=== PATIENT | female | born 1990 | race Caucasian/White ===

== ENCOUNTER 2024-12-25 18:07 | Inpatient (IN) | payer OTHER, SELFPAY ==
[2024-12-25] MEDS: LR 1000 IV (18:15)
[2024-12-25 18:28] VITALS: BMI 30.4
[2024-12-25 18:40] VITALS: BP 138/93
[2024-12-25 18:50] LABS: Hematocrit 35.8 % (37.0-47.0); Hemoglobin 12.0 g/dL (12.0-16.0); Mean Corp Hgb Conc. 33.5 g/dL (33.0-37.0); Mean Corpuscular Volume 83.3 fL (81.0-99.0); Nucleated Red Blood Cells % 0 %; Platelet Count 166 10^3/uL (130-400); Red Cell Dist. Width 13.2 % (11.5-14.5)
[2024-12-25 19:08] LABS: ALT (SGPT) < 10 U/L (0-35); AST (SGOT) 18 U/L (14-36); Albumin 3.5 g/dl (3.5-5.0); Alkaline Phosphatase 213 U/L (38-126); Blood Urea Nitrogen 14 mg/dl (7-17); Calcium 9.4 mg/dl (8.4-10.2); Carbon Dioxide 20 mmol/L (22-30); Chloride 110 mmol/L (98-107); Estimated Creatinine Clearance 121 ml/min; Glucose 81 mg/dl (70-99); Potassium 4.4 mmol/L (3.5-5.1); Sodium 134 mmol/L (135-145); Total Protein 6.3 g/dl (6.3-8.2); eGFR > 60.00
[2024-12-25] MEDS: PITOCIN 30 UNITS/NSS 500 ML IV (19:16)
[2024-12-25] MEDS: XYLOCAINE-MPF 1% VIAL 12 ML INFIL (19:17)
[2024-12-25] MEDS: CYTOTEC 800 MCG RECTAL (20:06)
[2024-12-25] MEDS: TRANEXAMIC ACID 100 IV (20:39)
[2024-12-25] MEDS: MORPHINE SULFATE 2 MG IV (21:07)
[2024-12-25] MEDS: ZOFRAN 4 MG IV (21:10)
[2024-12-25 22:36] LABS: Hematocrit 32.3 % (37.0-47.0); Hemoglobin 10.6 g/dL (12.0-16.0); Mean Corp Hgb Conc. 32.8 g/dL (33.0-37.0); Mean Corpuscular Volume 83.7 fL (81.0-99.0); Platelet Count 143 10^3/uL (130-400); Red Cell Dist. Width 13.2 % (11.5-14.5)
[2024-12-25 22:39] LABS: INR 0.96; PT 13.1 Sec (11.4-14.6)
[2024-12-25 22:40] LABS: APTT 25.5 Sec (23.4-35.0); Fibrinogen 411 MG/DL (199-459)
[2024-12-26] MEDS: COLACE PO (02:24)
[2024-12-26] MEDS: ANCEF 10 IV (02:33)
[2024-12-26] MEDS: TYLENOL 650 MG PO ×3 (02:42→16:38)
[2024-12-26 05:51] LABS: Hematocrit 30.2 % (37.0-47.0); Hemoglobin 10.0 g/dL (12.0-16.0)
[2024-12-26] MEDS: FEOSOL 325 MG PO (08:25)
[2024-12-26] MEDS: COLACE 100 MG PO ×2 (08:25→20:14)
[2024-12-27] MEDS: TYLENOL 650 MG PO (00:13)
[2024-12-27 00:53] LABS: Hematocrit 28.8 % (37.0-47.0); Hemoglobin 9.5 g/dL (12.0-16.0); Mean Corp Hgb Conc. 33.0 g/dL (33.0-37.0); Mean Corpuscular Volume 83.7 fL (81.0-99.0); Nucleated Red Blood Cells % 0 %; Platelet Count 154 10^3/uL (130-400); Red Cell Dist. Width 13.6 % (11.5-14.5)
[2024-12-27 01:11] LABS: ALT (SGPT) < 10 U/L (0-35); AST (SGOT) 17 U/L (14-36); Albumin 2.8 g/dl (3.5-5.0); Alkaline Phosphatase 132 U/L (38-126); Blood Urea Nitrogen 11 mg/dl (7-17); Calcium 8.4 mg/dl (8.4-10.2); Carbon Dioxide 23 mmol/L (22-30); Chloride 112 mmol/L (98-107); Estimated Creatinine Clearance > 125 ml/min; Glucose 131 mg/dl (70-99); Potassium 4.5 mmol/L (3.5-5.1); Sodium 136 mmol/L (135-145); Total Protein 5.3 g/dl (6.3-8.2); eGFR > 60.00
[2024-12-27] MEDS: PROCARDIA XL (EXTENDED RELEASE) 30 MG PO (01:23)
[2024-12-27] MEDS: PRENATAL PLUS 1 TABLET PO (07:46)
[2024-12-27] MEDS: COLACE 100 MG PO (07:46)
[2024-12-27] MEDS: FEOSOL 325 MG PO (07:47)
[2024-12-29 11:06] LABS: Syphilis/T. pallidum Ab Reflex Negative (Negative)
== END 2024-12-27 11:15 | disposition home or self-care (01) | DRG 768 ==
LOC: LDRP 18:07
PROVIDERS: Obstetrics & Gynecology; ADMITTING PHYSICIAN Student in an Organized Health Care Education/Training Program
PROC: 0W3R7ZZ Control Bleeding in Genitourinary Tract, Via Natural or Artificial Opening (ICD-10-PCS; 2024-12-25)
PROC: 10E0XZZ Delivery of Products of Conception, External Approach (ICD-10-PCS; 2024-12-25)
PROC: 0KQM0ZZ Repair Perineum Muscle, Open Approach (ICD-10-PCS; 2024-12-25)
DX: O34.219 Maternal care for unspecified type scar from previous cesarean delivery (principal); Z37.0 Single live birth; O72.2 Delayed and secondary postpartum hemorrhage; Z3A.49 Greater than 42 weeks gestation of pregnancy; O69.81X0 Labor and delivery complicated by cord around neck, without compression, not applicable or unspecified; O70.1 Second degree perineal laceration during delivery
CPT/HCPCS: 80053; 82570; 84156; 85014; 85018; 85025; 85027; 85384; 85610; 85730; 86780; 86850; 86900; 86901

== ENCOUNTER → 2025-03-23 17:42 | Outpatient (REF) | payer OTHER, SELFPAY | LOC: UCDH 17:42 | PROVIDERS: ATTENDING PHYSICIAN Physician Assistant Medical; FAMILY PHYSICIAN Internal Medicine | DX: S93.401A Sprain of unspecified ligament of right ankle, initial encounter (principal) | CPT/HCPCS: 73610 ==